=== PATIENT | male | born 1990 | race Caucasian/White ===

== ENCOUNTER 2018-05-31 03:43 | Emergency (ER) | payer MEDICAID ==
[2018-05-31] MEDS ORDERED: HYDROCODONE/APAP 5/325MG TABLET PO ONE (04:00)
[2018-05-31] MEDS ORDERED: CLINDAMYCIN 150 MG CAP PO SCH (04:00)
[2018-05-31] MEDS ORDERED: CLINDAMYCIN 150 MG CAP PO ONE (04:05)
--- NOTE | 2018-05-31 04:09 | Emergency Department Record ---
History of Present Illness - General Chief complaint: Toothache Stated complaint: DENTAL PAIN Time Seen by Provider: 05/31/18 03:58 Source: Patient Mode of Arrival: Ambulatory Limitations: No limitations - History of Present Illness Initial comments: pt has swelling of his face and pain with foul drainage. pt has dentist appt complaint: Tooth pain Onset/Timin -: Week(s) Severity scale (1-10): 6 Consistency: Getting worse Context- Dental: History of dental caries, Poor dental care Associated Symptoms: Gum swelling, Toothache - Related Data Previous Rx's Medication Instructions Recorded Clindamycin HCl 150 mg PO Q8HR #30 capsule 05/31/18 Clindamycin HCl 300 mg PO Q8HR #30 capsule 05/31/18 Hydrocodone/Acetaminophen [Cherry Tree 1 each PO Q6HR #7 tablet 05/31/18 5-325 Tablet] Allergies Allergy/AdvReac Type Severity Reaction Status Date / Time Penicillins Allergy HIVES Verified 05/31/18 03:48 Travel Screening - Travel/Exposure Within Last 30 Days Have you traveled within the last 30 days?: No - Travel Symptoms Symptom Screening: None Review of Systems Reviewed: No additional complaints except as noted below Constitutional: Reports: As per HPI. Denies: Chills, Fever, Malaise, Night sweats, Weakness, Weight change Eyes: Reports: As per HPI. Denies: Eye discharge, Eye pain, Photophobia, Vision change ENT: Reports: As per HPI. Denies: Congestion, Dental pain, Ear pain, Epistaxis , Hearing loss, Throat pain Respiratory: Reports: As per HPI. Denies: Cough, Dyspnea, Hemoptysis, Stridor, Wheezes Cardiovascular: Reports: As per HPI. Denies: Arrhythmia, Chest pain, Dyspnea on exertion, Edema, Murmurs, Orthopnea, Palpitations, Paroxysmal nocturnal dyspnea, Rheumatic Fever, Syncope Endocrine: Reports: As per HPI. Denies: Fatigue, Heat or cold intolerance, Polydipsia, Polyuria Gastrointestinal: Reports: As per HPI. Denies: Abdominal pain, Constipation, Diarrhea, Hematemesis, Hematochezia, Melena, Nausea, Vomiting Genitourinary: Reports: As per HPI. Denies: Dysuria, Frequency, Hematuria, Incontinence, Retention, Testicular pain, Testicular mass, Urgency Musculoskeletal: Reports: As per HPI. Denies: Arthralgia, Back pain, Gout, Joint swelling, Myalgia, Neck pain Skin: Reports: As per HPI. Denies: Bruising, Change in color, Change in hair/ nails, Lesions, Pruritus, Rash Neurological: Reports: As per HPI. Denies: Abnormal gait, Confusion, Headache, Numbness, Paresthesias, Seizure, Tingling, Tremors, Vertigo, Weakness Psychiatric: Reports: As per HPI. Denies: Anxiety, Auditory hallucinations, Depression, Homicidal thoughts, Suicidal thoughts, Visual hallucinations Hematological/Lymphatic: Reports: As per HPI. Denies: Anemia, Blood Clots, Easy bleeding, Easy bruising, Swollen glands Past Medical History - SOCIAL HISTORY Smoking Status: Current every day smoker - RESPIRATORY Hx Respiratory Disorders: No - CARDIOVASCULAR Hx Cardio Disorders: No - NEURO Hx Neuro Disorders: No - GI Hx GI Disorders: No - Hx Genitourinary Disorders: No - ENDOCRINE Hx Endocrine Disorders: No - MUSCULOSKELETAL Hx Musculoskeletal Disorders: No - PSYCH Hx Psych Problems: No - HEMATOLOGY/ONCOLOGY Hx Hematology/Oncology Disorders: No Family Medical History Any Significant Family History?: Yes Hx Cancer: Grandparents Hx Diabetes: Father Physical Exam - General General Appearance: Alert, Oriented x3, Cooperative, No acute distress - Head Head exam: Normal inspection - Eye Eye exam: Normal appearance, PERRL, EOMI Pupils: Normal accommodation - ENT ENT exam: Normal exam, Mucous membranes moist, Normal external ear exam, Normal orophraynx Ear exam: Normal external inspection. negative: External canal tenderness Nasal Exam: Normal inspection. negative: Discharge, Sinus tenderness Mouth exam: Normal external inspection, Tongue normal Teeth exam: Dental caries, Dental tenderness # Throat exam: Normal inspection. negative: Tonsillar erythema, Tonsillar exudate - Neck Neck exam: Normal inspection, Full ROM. negative: Tenderness - Respiratory Respiratory exam: Normal lung sounds bilaterally. negative: Respiratory distress - Cardiovascular Cardiovascular Exam: Regular rate, Normal rhythm, Normal heart sounds - GI/Abdominal GI/Abdominal exam: Soft, Normal bowel sounds. negative: Tenderness - Rectal Rectal exam: Deferred - exam: Deferred - Extremities Extremities exam: Normal inspection, Full ROM, Normal capillary refill. negative: Tenderness - Back Back exam: Reports: Normal inspection, Full ROM. Denies: Muscle spasm, Rash noted, Tenderness - Neurological Neurological exam: Alert, CN II-XII intact, Normal gait, Oriented X3 - Psychiatric Psychiatric exam: Normal affect, Normal mood - Skin Skin exam: Dry, Intact, Normal color, Warm Course Vital Signs 05/31/18 03:47 Temperature 97.7 F Pulse Rate [ 62 Pulse Ox Probe] Respiratory 20 Rate Blood Pressure 124/81 [Left Arm] Pulse Ox 100 Disposition Disposition: Discharge Clinical Impression: Dental abscess Disposition: Home, Self-Care Condition: (1) Good Instructions: Dental Abscess (ED) Additional Instructions: follow up with dentist william. return sooner if worse. Prescriptions: Hydrocodone/Acetaminophen [Cherry [place] 5-325 Tablet] 1 each PO Q6HR #7 tablet Clindamycin HCl 150 mg PO Q8HR #30 capsule Clindamycin HCl 300 mg PO Q8HR #30 capsule Quality - Quality Measures Quality Measures: N/A - Blood Pressure Screening Does Patient Have Any of the Following: No Blood Pressure Classification: Pre-Hypertensive BP Reading Systolic Measurement: 124 Diastolic Measurement: 81 Screening for High Blood Pressure: < Pre-Hypertensive BP, F/U Documented > [ G8950] Pre-Hypertensive Follow-up Interventions: Follow-up with rescreen every year.
== END 2018-05-31 04:16 | disposition home or self-care (01) ==
LOC: ER 03:43
DX: K04.7 Periapical abscess without sinus (principal); F17.210 Nicotine dependence, cigarettes, uncomplicated
CPT/HCPCS: 99282

== ENCOUNTER 2018-09-28 20:10 | Emergency (ER) | payer MEDICAID ==
[2018-09-28] MEDS ORDERED: CLINDAMYCIN 600MG/50ML PREMIX 600 MG/50 ML BAG IVPB ONE (20:18)
--- NOTE | 2018-09-28 20:19 | Emergency Department Record ---
History of Present Illness - General Chief complaint: Pain Stated complaint: LT KNEE SWELLING/PAIN Time Seen by Provider: 09/28/18 20:12 Source: Patient, Family Mode of Arrival: Ambulatory Limitations: No limitations - History of Present Illness Initial comments: 27 yo male presents with left knee pain and swelling. He noted the symptoms over the last one day. He had a small pimple that he had popped earlier. The area has become mildly warm, red, and swollen that last day. No fevers. He has some faint red streaks as well. No other joint aches. No drainage. The pimple completely drained. 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 MD Complaint: Joint pain, Joint swelling -: Days(s) Location: Left -: Yes Arthralgia Radiation: Distal Quality: Aching Consistency: Constant Improves with: Rest Worsens with: Walking, Weight bearing Associated Symptoms: Denies other symptoms - Related Data Previous Rx's Medication Instructions Recorded Clindamycin HCl [Cleocin HCl] 300 mg PO Q6H #28 capsule 09/28/18 Ibuprofen [Motrin 600Mg] 600 mg PO Q6H #20 tablet 09/28/18 Allergies Allergy/AdvReac Type Severity Reaction Status Date / Time Penicillins Allergy HIVES Verified 05/31/18 03:48 Review of Systems Constitutional: Denies: Chills, Fever, Malaise, Weakness Eyes: Denies: Eye discharge ENT: Denies: Congestion, Throat pain Respiratory: Denies: Cough, Dyspnea Cardiovascular: Denies: Chest pain, Syncope Endocrine: Denies: Fatigue Gastrointestinal: Denies: Abdominal pain, Diarrhea, Nausea, Vomiting Genitourinary: Denies: Dysuria, Frequency Musculoskeletal: Reports: Arthralgia Skin: Denies: Bruising, Change in color, Rash Neurological: Denies: Numbness, Tingling Psychiatric: Denies: Anxiety Hematological/Lymphatic: Denies: Blood Clots, Easy bleeding, Easy bruising Past Medical History - SOCIAL HISTORY Smoking Status: Current every day smoker - RESPIRATORY Hx Respiratory Disorders: No - CARDIOVASCULAR Hx Cardio Disorders: No - NEURO Hx Neuro Disorders: No - GI Hx GI Disorders: No - Hx Genitourinary Disorders: No - ENDOCRINE Hx Endocrine Disorders: No - MUSCULOSKELETAL Hx Musculoskeletal Disorders: No - PSYCH Hx Psych Problems: No - HEMATOLOGY/ONCOLOGY Hx Hematology/Oncology Disorders: No Family Medical History Hx Cancer: Grandparents Hx Diabetes: Father Physical Exam - General General Appearance: Alert, Oriented x3, Cooperative, No acute distress Limitations: No limitations - Head Head exam: Atraumatic, Normal inspection - Eye Eye exam: Normal appearance - ENT ENT exam: Normal exam Ear exam: Normal external inspection Nasal Exam: Normal inspection Mouth exam: Normal external inspection - Neck Neck exam: Normal inspection - Respiratory Respiratory exam: Normal lung sounds bilaterally. negative: Respiratory distress - Rectal Rectal exam: Deferred - exam: Deferred - Extremities Extremities exam: Full ROM, Joint swelling, Tenderness. negative: Normal inspection, Calf tenderness, Normal capillary refill, Pedal edema Image of Full Body: 1 - mild swelling compared to the right, mild erythema, mild warm. Full ROM without limitation. The small pimple appears and feels drained. No fluctuance or pus. - Neurological Neurological exam: Alert, Oriented X3 - Psychiatric Psychiatric exam: Normal affect, Normal mood - Skin Skin exam: Erythema Course - Reevaluation(s) Reevaluation #1: The examination demonstrates a mild cellulitis. No fluctuance or drainage. He has full ROM without limitation. He will be given a dose of IV antibiotics then oral. We discussed elevation and minimizing weight bearing. He will return in 24-48 hours for a recheck if not improving. No limitation of range of motion or signs of deeper joint involvement. Rx provided for Clindamycin. 09/28/18 20:25 We discussed home care with recommendation for off work tomorrow with leg elevation and rest. He states he will not be able to miss work tomorrow. He will return to the ED if worse or any new concerns. 09/28/18 20:55 XR reviewed. No acute osseous injury or effusion. Anterior STS. 09/28/18 20:56 He was sent with the next 2 doses of oral antibiotic given the pharmacy is closed in town at this time 09/28/18 20:57 Disposition Disposition: Discharge Clinical Impression: Cellulitis Qualifiers: Site of cellulitis: extremity Site of cellulitis of extremity: lower extremity Laterality: left Qualified Code(s): L03.116 - Cellulitis of left lower limb Disposition: Home, Self-Care Condition: (1) Good Instructions: Cellulitis (ED) Additional Instructions: Elevate the leg as much as possible Return for a recheck in 1-2 days if not improving Return sooner if worse, fever, pus drainage or any new concerns Take the antibiotics without missing any doses Prescriptions: Clindamycin HCl [Cleocin HCl] 300 mg PO Q6H #28 capsule Ibuprofen [Motrin 600Mg] 600 mg PO Q6H #20 tablet Forms: Patient Portal Access Time of Disposition: 20:56 Quality - Quality Measures Quality Measures: N/A - Blood Pressure Screening Does Patient Have Any of the Following: No Blood Pressure Classification: Normal BP Reading Systolic Measurement: 113 Diastolic Measurement: 75 Screening for High Blood Pressure: < Normal BP, F/U Not Required > [G8783]
[2018-09-28] MEDS ORDERED: IBUPROFEN 600 MG TABLET PO ONE (20:25)
[2018-09-28] MEDS ORDERED: CLINDAMYCIN 600MG/50ML PREMIX 600 MG/50 ML BAG IVPB SCH (20:30)
[2018-09-28] MEDS ORDERED: CLINDAMYCIN 150 MG CAP PO ONE ×2 (20:40→20:41)
--- NOTE | 2018-09-30 13:41 | RADIOLOGY REPORT ---
DATE: 09/28/2018. EXAM: LEFT KNEE RADIOGRAPHS. HISTORY: LEFT KNEE PAIN AND SWELLING. NO KNOWN INJURY. TECHNIQUE: Four views of the left knee. COMPARISON: None. FINDINGS: Prepatellar soft tissue swelling. No significant knee joint effusion. No acute fracture seen. No dislocation. No significant degenerative changes. IMPRESSION: PREPATELLAR SOFT TISSUE SWELLING. THE FINDING IS NONSPECIFIC BUT COULD BE SEEN WITH PREPATELLAR BURSITIS. JOB NUMBER: [id number] [facility]
== END 2018-09-28 21:11 | disposition home or self-care (01) ==
LOC: ER 20:10
DX: L03.116 Cellulitis of left lower limb (principal); F17.210 Nicotine dependence, cigarettes, uncomplicated
CPT/HCPCS: 96365; 99284

== ENCOUNTER 2018-10-11 21:23 | Emergency (ER) | payer MEDICAID ==
--- NOTE | 2018-10-11 21:35 | Emergency Department Record ---
History of Present Illness - General Chief complaint: Pain Stated complaint: LT KNEE SWELLING/PAIN Time Seen by Provider: 10/11/18 21:25 Source: Patient Mode of Arrival: Ambulatory Limitations: No limitations - History of Present Illness Initial comments: The patient is here due to L knee pain for 2 weeks. He was here about 14 days ago and was diagnosed with a prepatellar bursitis and was prescribed Clindamycin. He just finished it 2 or 3 days ago. Initially there was a pimple over the prepatellar area that he drained. Now the pain and swelling and redness is getting worse again since he stopped his Abx's. There has been no reported fever, chills, or trauma. He did have a neg xray 2 weeks ago. MD Complaint: Extremity pain Onset/Timin -: Days(s) Location: Left, Knee History of Same: Yes Radiation: Distal Severity scale (1-10): 7 Quality: Aching Consistency: Constant Improves with: Nothing Worsens with: Exertion, Palpation, Weight bearing Associated Symptoms: Arthralgias - Related Data Previous Rx's Medication Instructions Recorded Cephalexin [Keflex] 500 mg PO QID #28 cap 10/11/18 Allergies Allergy/AdvReac Type Severity Reaction Status Date / Time Penicillins Allergy HIVES Verified 05/31/18 03:48 Travel Screening - Travel/Exposure Within Last 30 Days Have you traveled within the last 30 days?: No - Travel Symptoms Symptom Screening: None Review of Systems Constitutional: Denies: Chills, Fever Eyes: Denies: Eye discharge ENT: Denies: Congestion Respiratory: Denies: Cough, Dyspnea Past Medical History - SOCIAL HISTORY Smoking Status: Current every day smoker Alcohol Use: None Drug Use: None - RESPIRATORY Hx Respiratory Disorders: No - CARDIOVASCULAR Hx Cardio Disorders: No - NEURO Hx Neuro Disorders: No - GI Hx GI Disorders: No - Hx Genitourinary Disorders: No - ENDOCRINE Hx Endocrine Disorders: No - MUSCULOSKELETAL Hx Musculoskeletal Disorders: No - PSYCH Hx Psych Problems: No - HEMATOLOGY/ONCOLOGY Hx Hematology/Oncology Disorders: No Family Medical History Any Significant Family History?: Yes Hx Cancer: Grandparents Hx Diabetes: Father Physical Exam - General General Appearance: Alert, Oriented x3, Cooperative, No acute distress - Head Head exam: Atraumatic, Normocephalic, Normal inspection - Eye Eye exam: Normal appearance, PERRL, EOMI - Extremities Extremities exam: Full ROM (with pain on full flexion.), Tenderness (only over the prepetallar area.). negative: Normal inspection, Calf tenderness, Joint swelling (There is prepatellar erythema, slight warmth, and tenderness but no joint effusion. ), Pedal edema Image of Full Body: 1 - Area of pain, slight swelling, redness and tenderness with slight warmth. - Neurological Neurological exam: Alert, Normal gait, Oriented X3. negative: Abnormal gait, Motor sensory deficit Course Vital Signs 10/11/18 21:27 Temperature 98.3 F Pulse Rate [ 83 Pulse Ox Probe] Respiratory 20 Rate Blood Pressure 133/83 [Left Arm] Pulse Ox 100 - Reevaluation(s) Reevaluation #1: The patient is resting comfortably and clearly appears to have a significant Prepatellar bursitis. He has been on oral Abx's for almost 14 days with no real improvement. I did discuss the need to see a specialist and will refer him to Dr. Mcfadden in the Specialty clinic. The patient understands the need to see an Human Resources Training Manager later this week. 10/11/18 22:30 Medical Decision Making - Data Complexity MDM Data: Labs Ordered and/or Reviewed - Lab Data Result diagrams: 10/11/18 21:50 10/11/18 21:50 Disposition Disposition: Discharge Clinical Impression: Prepatellar bursitis, left knee Disposition: Home, Self-Care Condition: (2) Stable Instructions: Cellulitis (ED) Additional Instructions: Please take the Keflex as directed and use warm compresses to the knee during the day with elevation. Please see Dr. Mcfadden in the Specialty clinic tomorrow or his office in [place] later this week. Return to the ER for any worsening pain, swelling, or fever. Prescriptions: Cephalexin [Keflex] 500 mg PO QID #28 cap Referrals: [facility] [Provider Group] NANCY MCFADDEN [DOCTOR OF OSTEOPATH] - Forms: Patient Portal Access Time of Disposition: 22:33 Quality - Quality Measures Quality Measures: N/A - Blood Pressure Screening View Details: Yes Does Patient Have Any of the Following: No Blood Pressure Classification: Normal BP Reading Systolic Measurement: 117 Diastolic Measurement: 73 Screening for High Blood Pressure: < Normal BP, F/U Not Required > [G8783]
[2018-10-11] MEDS ORDERED: CEFTRIAXONE SODIUM 1 GM in 0.9 % SODIUM CHLORIDE 100ML 100 ML IVPB ONE (21:39)
[2018-10-11 22:01] LABS: BASO % 0.2 % (0-6); EOS % 1.5 % (0-6); GRAN % 63.1 % (47-80); HEMATOCRIT 42.8 % (42.0-52.0); HEMOGLOBIN 14.7 gm/dl (14.0-18.0); LYMPH % 25.4 % (16-45); MEAN CELL VOLUME 91.3 fl (81-97); MEAN CORPUSCULAR HEMOGLOBIN 31.3 pg (27-33); MEAN CORPUSCULAR HGB CONC 34.3 g/dl (32-36); MEAN PLATELET VOLUME 10.5 fl (7.4-10.4); MONO % 9.8 % (0-9); PLATELET COUNT 159 K/uL (130-400); RED BLOOD COUNT 4.69 M/uL (4.40-5.70); RED CELL DISTRIBUTION WIDTH 12.9 % (11.5-14.5); WHITE BLOOD COUNT W/O DIFF 9.5 K/uL (4.2-12.2)
[2018-10-11 22:10] LABS: BLOOD UREA NITROGEN 12 mg/dL (6-20); CREATININE 0.9 mg/dL (0.7-1.2); EST GLOMERULAR FILTRATION RATE > 60 mL/min
[2018-10-11 22:13] LABS: GLUCOSE,RANDOM 83 mg/dL (74-109)
[2018-10-11 22:15] LABS: ALT/SGPT 16 U/L (<41); AST/SGOT 26 U/L (10.0-50.0)
[2018-10-11 22:16] LABS: ALB/GLOB RATIO 1.7 (1.1-1.8); ALBUMIN 4.4 g/dL (4.0-5.0); ALKALINE PHOSPHATASE 70 U/L (40-129); C-REACTIVE PROTEIN 0.74 mg/dL (<0.5)
[2018-10-11] MEDS ORDERED: CEPHALEXIN 500 MG CAPSULE PO STA (22:33)
== END 2018-10-11 22:38 | disposition home or self-care (01) ==
LOC: ER 21:23
DX: M70.42 Prepatellar bursitis, left knee (principal); F17.210 Nicotine dependence, cigarettes, uncomplicated
CPT/HCPCS: 80053; 85025; 86140; 96365; 99284